=== PATIENT | male | born 1955 | race Two or more races ===

== ENCOUNTER 2024-03-07 19:39 | Emergency (ER) | payer OTHER ==
[~2024-03-07] VITALS: Ht 175.3 cm; Wt 64.0 kg
[2024-03-07] MEDS ORDERED: ATIVAN2 M1 PO (19:46)
[2024-03-07] MEDS ORDERED: LOTREL 10-20 M1 EACH PO (19:46)
[2024-03-07] MEDS ORDERED: RESTORIL7.5 MG (19:47)
[2024-03-07] MEDS ORDERED: KETOROLAC TROMETHAMINE 60 MG VIAL IM ONE ×2 (20:38→20:45)
[2024-03-07] MEDS ORDERED: ORPHENADRINE CITRATE 30 MG/ML AMPUL IM ONE (20:45)
== END 2024-03-07 21:28 | disposition home or self-care (01) ==
LOC: ER 19:41
DX: M79.602 Pain in left arm (principal)
CPT/HCPCS: 73030; 73060; 96372; 99283; J1885; J2360